=== PATIENT | female | born 1935 | race Caucasian/White ===

== ENCOUNTER 2016-08-28 19:58 | Emergency (ER) | payer OTHER ==
[~2016-08-28] VITALS: Ht 154.9 cm; Wt 63.5 kg
--- NOTE | ~2016-08-28 | EKG ---
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
[~2016-08-28 19:58] MED LIST: CIPROFLOXACIN500 M1 PO; PRINIVIL20 MG PO; PYRIDIUM100 M1 PO; TOPROL XL25 MG PO
[2016-08-28 21:02] LABS: BASOPHILS 0.6 % (0.0-2.0); EOSINOPHILS 1.7 % (0.0-3.0); HEMATOCRIT 40.7 % (37.0-47.0); HEMOGLOBIN 13.7 gm/dL (12.0-15.0); LYMPHOCYTES 27.4 % (24.0-44.0); MCH 30.4 pg (26.0-34.0); MCHC 33.7 g/dL (28.0-37.0); PLATELET COUNT 282 thou/uL (150-400); POLYS 64.3 % (36.0-66.0); RBC 4.52 mil/uL (4.20-5.00); RDW 13.2 % (10.5-14.5); WBC 7.8 thou/uL (4.0-11.0)
[2016-08-28 21:04] LABS: MANUAL DIFF NO
[2016-08-28] MEDS ORDERED: XALATAN2.5 ML OPHTHALMIC (21:04)
[2016-08-28] MEDS ORDERED: METOPROLOL TART25 MG PO (21:04)
[2016-08-28] MEDS ORDERED: TIMOLOL MA0.5 %/5 M2 INTRAOCULR (21:04)
[2016-08-28] MEDS ORDERED: LISINOPRIL40 MG PO (21:04)
[2016-08-28] MEDS ORDERED: DORZOLAMIDE HCL10 ML OP (21:04)
[2016-08-28] MEDS ORDERED: XANAX 0.25 MG0.25 MG PO (21:05)
[2016-08-28 21:12] LABS: ANION GAP 9 mmol/L (7-16); BUN 21 mg/dL (7-18); CALCIUM 9.3 mg/dL (8.5-10.1); CHLORIDE 101 mmol/L (98-107); CO2 27 mmol/L (21-32); CREATININE 1.2 mg/dL (0.6-1.0); GLUCOSE 133 mg/dL (74-106); POTASSIUM 4.1 mmol/L (3.5-5.1); SODIUM 137 mmol/L (136-145)
[2016-08-28 21:19] LABS: TROPONIN-I < 0.04 ng/mL (<0.04-0.07)
[2016-08-28 22:10] VITALS: BP 153/58
== END 2016-08-28 22:11 | disposition home or self-care (01) ==
LOC: ER 19:58
PROVIDERS: Emergency Medicine
DX: R03.0 Elevated blood-pressure reading, without diagnosis of hypertension (principal); F10.99 Alcohol use, unspecified with unspecified alcohol-induced disorder; Z88.0 Allergy status to penicillin

== ENCOUNTER 2018-03-04 05:35 | Day surgery (SDC) | payer OTHER ==
[~2018-03-04] VITALS: Ht 154.9 cm; Wt 61.2 kg
--- NOTE | ~2018-03-04 | PATH ---
[facility] [address] [place] [address] PATHOLOGY RPT PROCEDURE Name: ANGELICA BERKOWITZ Room #: DEP [facility] [place].R.#: [id number] Admission: 03/04/18 Date of : 31 Discharge: 03/04/18 Report #: [id number] Path Case #: [id number] [facility] Accession Number: [id number] . 01 Material submitted: . CANALICULITIS OF LEFT EYE . 01 Clinical history: . Left inferior canaliculitis . 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 (IUV:insurance rater; 03/05/2018) MBR/03/05/2018 . 02 Electronically signed: . Susannah Etienne MD, Pathologist NPI- [id number] . 01 Gross description: . The specimen is received in formalin, labeled "Berkowitz, Angelica, canaliculoliths of left eye" and consists of multiple fragments of soft amorphous yellow-cai tissue measuring 0.8 x 0.3 x 0.2 cm in aggregate which are entirely submitted in A1. (SDY; 03/04/2018) SYU/SYU . 02 Pathologist provided ICD-10: A42.89 . 02 CPT . 798562 Specimen Comment: A courtesy copy of this report has been sent to Specimen Comment: [phone], . Specimen Comment: Report sent to / DR MILTON Specimen Comment: A duplicate report has been generated due to demographic updates. Performed at: [address], [place] [id number] MD Jt Alvarado MD Phone: [phone] Performed at: [address] [id number] MD Susannah Etienne MD Phone: [phone]
--- NOTE | ~2018-03-04 | O ---
[facility] [place] [address] OPERATIVE REPORT Name: ROBERT BERKOWITZ Room #: DEP [facility] M.R.#: [id number] Admission: 03/04/18 Attend Phys: Jorge Luis Grace MD Discharge: 03/04/18 Date of : 31 Report #: [id number] THIS REPORT FOR: //name// CC: Vernon Grace DATE OF SERVICE: 03/04/2018 PREOPERATIVE DIAGNOSIS: Left canaliculitis with nasolacrimal duct obstruction. POSTOPERATIVE DIAGNOSIS: Left canaliculitis with nasolacrimal duct obstruction. PROCEDURE: Removal of canaliculoliths of the left inferior lacrimal outflow tract with endoscopic balloon dacryocystoplasty and silicone lacrimal intubation. SURGEON: Jorge Luis Grace M.D. BASS MECHANISM MAKER: None. ANESTHESIA: General. COMPLICATIONS: None. INDICATIONS FOR SURGERY: This pleasant 82-year-old woman has a left inferior canaliculitis with canaliculus and nasolacrimal duct obstruction. She presents today for lacrimal outflow intervention in order to attempt to establish patent lacrimal outflow and reverse her infection. Informed consent was obtained to include but not limited to the potential risk for loss of vision, bleeding, infection, failure to improve the problem and the potential need for further surgery or treatment. DESCRIPTION OF PROCEDURE: The patient was taken to the operating room where general anesthesia was administered. The left medial canthal area and the left lateral wall of the nose were then generously infiltrated with Xylocaine with epinephrine mixed with Marcaine and Wydase. The patient was subsequently prepped and draped in the usual sterile fashion. The left lower lid was then everted and the punctum dilated. Utilizing two cotton-tipped applicators, the concretions in the left patulous horizontal canaliculus were then passed in a retrograde fashion back out into the palpebral aperture. Some of the debris was collected and passed off for pathologic analysis. Multiple sections of material were removed. The tract was then irrigated through the superior system, which flushed back to the inferior system since the nasolacrimal duct was occluded, with no more debris being noted. [facility] [address] [place] [address] OPERATIVE REPORT Name: SHOROBERT Room #: DEP [facility] M.R.#: [id number] Admission: 03/04/18 Attend Phys: Jorge Luis Grace MD Discharge: 03/04/18 Date of : 31 Report #: [id number] superior punctum was similarly dilated. A #1 and then a #2 Howard probe were then passed through the superior and inferior canaliculi and passed into the nasolacrimal duct and then into the inferior meatus as confirmed video endoscopically. The inferior turbinate was medialized to allow better visualization into the inferior meatus and to ensure that both the superior and inferior canaliculus were cannulated successfully. A 3 mm x 15 mm lacricatheter was then lubricated with erythromycin ointment and then passed through the canaliculus into the nasolacrimal duct where it was confirmed to be in the proper location video endoscopically. The balloon was then inflated to 9 atmospheres for 90 seconds at the distal black marking ring. It was then passed to the proximal black marking ring where it was similarly inflated for 90 more seconds. It was then inflated completely through the system and another inflation cycle completed. The balloon was then vigorously aspirated as it was withdrawn. The tract irrigated well through both the superior and the inferior canaliculi. Miller tubes were then passed through the superior and inferior canaliculus and retrieved under the inferior turbinate with a Miller hook. The video endoscope was used to ensure that the passage was accomplished atraumatically. The silicone tubes were then secured to themselves with 3 square throws and subsequently to the lateral wall of the nose with one 5-0 Prolene suture. The wounds were then cleaned and Maxitrol drops placed on the eye. The patient was subsequently transported to the recovery area having tolerated the procedure well with no anesthetic or operative complications being noted. <ELECTRONICALLY SIGNED> By: Jorge Luis Grace MD 03/08/18 0617 0951 1051 Jorge Luis Grace MD /nt
[~2018-03-04 05:35] MED LIST changes: +ARTIFICIAL TEA3.5 G2 OPHTHALMIC; +ASPIR 8181 MG PO; +CALCIUM 500 +1 EAC5 PO; +DORZOLAMIDE HCL10 ML OPHTHALMIC; +LISINOPRIL40 MG PO; +METOPROLOL TART25 MG PO; +MULTIVITAMINS1 EAC7 PO; +NORVASC5 M1 PO; +TIMOLOL MA0.25 %/52 OPHTHALMIC; +VITAMIN B-12500 MCG PO; +VITAMIN B-6100 MG PO; +VITAMIN D31000 UNIT PO; +XALATAN2.5 ML OPHTHALMIC; +XANAX 0.25 MG0.25 MG PO
[2018-03-04 08:00] VITALS: BP 149/62
== END 2018-03-04 10:45 | disposition home or self-care (01) ==
LOC: OR 05:35 → TBA 05:36 → OR 10:31
DX: A42.89 Other forms of actinomycosis (principal); H04.542 Stenosis of left lacrimal canaliculi; I10 Essential (primary) hypertension; H40.9 Unspecified glaucoma; Z98.41 Cataract extraction status, right eye; Z98.42 Cataract extraction status, left eye; Z98.890 Other specified postprocedural states; Z79.899 Other long term (current) drug therapy; Z86.59 Personal history of other mental and behavioral disorders; Z87.440 Personal history of urinary (tract) infections; Z79.82 Long term (current) use of aspirin; Z96.1 Presence of intraocular lens
CPT/HCPCS: 50010; 50101; 50386; 50398; 51777; 55343; 56528; 62110; 62900; 70005

== ENCOUNTER 2018-12-23 13:00 | Inpatient (IN) | payer OTHER ==
[~2018-12-23] VITALS: Ht 152.4 cm; Wt 58.1 kg
[2018-12-23 15:02] VITALS: BP 168/63
[2018-12-23 15:45] LABS: ABSOLUTE NEUTROPHILS 6.7 thou/uL (1.4-8.2); BASOPHILS 0.4 % (0.0-2.0); EOSINOPHILS 0.1 % (0.0-3.0); HEMATOCRIT 41.8 % (37.0-47.0); HEMOGLOBIN 13.7 gm/dL (12.0-15.0); LYMPHOCYTES 14.1 % (24.0-44.0); MCH 29.7 pg (26.0-34.0); MCHC 32.7 g/dL (28.0-37.0); MCV 90.7 fL (80.0-100.0); MONOCYTES 1.3 % (1.0-8.0); PLATELET COUNT 276 thou/uL (150-400); POLYS 84.1 % (36.0-66.0); RBC 4.61 mil/uL (4.20-5.00); RDW 13.4 % (10.5-14.5); WBC 7.9 thou/uL (4.0-11.0)
[2018-12-23 15:52] LABS: CALCIUM 9.3 mg/dL (8.5-10.1); POTASSIUM 3.8 mmol/L (3.5-5.1)
--- NOTE | 2018-12-23 15:58 | NUR ---
PATIENT DIRECT ADMISSION FOR VERTIGO AND DEHYDRATION. REPORTS NAUSEA AND VOMITTING THIS MORNING, HEADACHE 3/10 PAIN, WILL NOTIFIY DR MILTON FOR PAIN MEDICATION. A/OX4, STAND BY ASSIST. FALL PRECATIONS IN PLACE. CONTINENT OF BLADDER BOWEL. LAST BM TODAY. ABLE TO MAKE NEEDS KNOWN, CALL LIGHT IN REACH. FLUIDS STARTED PER ORDER. PATIENT RESTING. CONTINUE TO MONITOR.
[2018-12-23 19:35] VITALS: BP 182/79
--- NOTE | 2018-12-24 04:13 | NUR ---
assumed care of pt @1915. pt a&ox4. pt ambulates to the bathroom with standby assist and a steady gait. pt declined tylenol for mild headache; stated she doesnt have a headache anymore. pt had a restful night. fall prec in place. call betancourt within reach. no s/s of distress. will cont to monitor
[2018-12-24 08:12] VITALS: BP 137/59
--- NOTE | 2018-12-24 12:19 | NUR ---
Received awake on bed. Due medications given as prescribed. A+O. On room air. Falls risk- falls bundle in place, able to ambulate with standby assist. On clear liquids- tolerating well; no nausea, no vomiting and no abdominal pain noted. With D51/2NS at 100cc/hr, infusing well at L FA. Vital signs stabl. Called Dr Benz, asked if pt can have PRN medication for dizziness and if ok to advance diet to regular since no episode of nausea and vomiting noted from last night- as per Dr Benz, he'll see patient today.
--- NOTE | 2018-12-24 14:19 | NUR ---
PT ADMITTED RELATED TO VERTIGO, DEHYDREATION. CM REVIEWED CHART AND SPOKE WITH CARE TEAM. CM MET WITH PT AT BEDSIDE THIS DAY. PT IS A&O X4. CM ROLE INTRODUCED. PT INDICATED SHE LIVES IN AN INDEPENDENT LIVING APARTMENT AT [facility]. PT INDICATED SHE HAD BEEN INDEPENDENT WITH GAIT AND ADLS [employer]. PT INDICATED NO HH HX. PT INDICATED SHE PLANS TO RETURN HOME ONCE MEDICALLY STABLE WITH NO NEEDS. DR. YOUNG INDICATED THAT LONG PT IS ABLE TO GET UP AND GET AROUND SAFTELY HE ANTICIPATES PT RETURNING HOME THIS AFTERNOON. PT INDICATED SHE WOULD ARRANGE TRASNPORT HOME. NO OTHER CM INTERVENTION ANTICPATED.
[2018-12-24 14:30] VITALS: BP 146/60
[2018-12-24 16:04] VITALS: BP 146/60
--- NOTE | 2018-12-28 14:38 | H ---
[facility] [place] [address] HISTORY AND PHYSICAL Name: ROBERT BERKOWITZ Room #: 453-P [facility] M.R.#: [id number] Admission: 12/23/18 Attend Phys: Felice Reese Discharge: 12/24/18 Date of : 31 Report #: [id number] THIS REPORT FOR: //name// CC: Vernon Holt DATE OF SERVICE: 12/23/2018 CHIEF COMPLAINT: Dizziness. HISTORY OF PRESENT ILLNESS: The patient was admitted through the office with dizziness. Symptoms began suddenly and she described a spinning sensation in her head, especially when sitting up from bed or twisting her head from side to side. She was admitted for treatment of the vertigo. Overnight with nausea medicine and IV fluid support, she is much improved. PAST MEDICAL HISTORY: Hypertension. PAST SURGICAL HISTORY: Unknown. FAMILY HISTORY: Noncontributory. SOCIAL HISTORY: She lives independently in her own apartment. No chronic alcohol or tobacco use. ALLERGIES: AMOXICILLIN. MEDICATIONS: Multiple eyedrops for glaucoma, otherwise metoprolol 25 mg b.i.d., lisinopril 40 mg, aspirin 81 mg, calcium, Tylenol, lisinopril 40 mg, B12, B6, vitamin D3 and multivitamin. REVIEW OF SYSTEMS: Denies headache, shortness of breath, chest pain, abdominal pain, dysuria, myalgias, arthralgias, syncope or fall. OBJECTIVE: VITAL SIGNS: Temperature 36.5, pulse 70, respirations 18, blood pressure 137/59, O2 sat 100% on room air. GENERAL: She is awake and alert, in no distress. HEAD AND NECK: Unremarkable. No nystagmus. LUNGS: Clear. HEART: Regular. ABDOMEN: Soft, normoactive bowel sounds. EXTREMITIES: No edema. NEUROLOGIC: Cranial nerves intact. Global strength intact. No lateralizing signs. LABORATORY DATA: Unremarkable. [facility] [address] [place] [address] HISTORY AND PHYSICAL Name: ROBERT BERKOWITZ Room #: 453-P DIS IN [facility].#: [id number] Admission: 12/23/18 Attend Phys: Felice Reese Discharge: 12/24/18 Date of : 31 Report #: [id number] ASSESSMENT: 1. Acute benign vertigo. 2. Hypertension. PLAN: Resume her home medicine and hold off on the amlodipine as her blood pressure is a little bit on the lower end for her today. I will ask the staff to get her up and walk the halls and if she is improved and can tolerate a regular diet, she could go home later this afternoon. <ELECTRONICALLY SIGNED> By: Tyrone Benz MD 12/28/18 1438 1227 1244 Tyrone Benz MD /nt
== END 2018-12-24 16:52 | disposition home or self-care (01) | DRG 149 ==
LOC: 4W 13:00
PROVIDERS: ADMIT Internal Medicine
DX: H81.10 Benign paroxysmal vertigo, unspecified ear (principal); I10 Essential (primary) hypertension; Z88.1 Allergy status to other antibiotic agents; Z79.899 Other long term (current) drug therapy
CPT/HCPCS: 10047

== ENCOUNTER 2019-11-12 10:39 | Emergency (ER) | payer OTHER ==
[~2019-11-12] VITALS: Ht 152.4 cm; Wt 57.6 kg
[2019-11-12 11:21] LABS: URINE BILIRUBIN NEGATIVE (Negative); URINE BLOOD NEGATIVE (Negative); URINE CLARITY CLEAR; URINE COLOR YELLOW; URINE GLUCOSE-RANDOM* NEGATIVE (Negative); URINE KETONES NEGATIVE (Negative); URINE LEUKOCYTES-REFLEX NEGATIVE (Negative); URINE NITRITE-REFLEX NEGATIVE (Negative); URINE PROTEIN (DIPSTICK) 1+ (Negative); URINE UROBILINOGEN 0.2 E.U./dl (0.2-1.0)
[2019-11-12 11:34] LABS: ABSOLUTE NEUTROPHILS 5.7 thou/uL (1.4-8.2); BASOPHILS 0.6 % (0.0-2.0); EOSINOPHILS 0.9 % (0.0-3.0); HEMATOCRIT 40.4 % (37.0-47.0); HEMOGLOBIN 13.7 gm/dL (12.0-15.0); LYMPHOCYTES 16.6 % (24.0-44.0); MCH 30.8 pg (26.0-34.0); MCHC 33.9 g/dL (28.0-37.0); MCV 90.8 fL (80.0-100.0); MONOCYTES 2.9 % (1.0-8.0); PLATELET COUNT 285 thou/uL (150-400); RBC 4.45 mil/uL (4.20-5.00); RDW 13.6 % (10.5-14.5); WBC 7.2 thou/uL (4.0-11.0)
[2019-11-12 11:36] LABS: CREATININE 1.2 mg/dL (0.6-1.0)
[2019-11-12 13:19] LABS: CASTS None Seen /LPF (None Seen); SQUAMOUS None Seen /LPF (0-3)
[2019-11-12 13:20] LABS: BACTERIA-REFLEX None Seen /HPF (None Seen); CRYSTALS None Seen /LPF (None Seen); URINE RBC None Seen /HPF (0-2); URINE WBC-REFLEX 0-5 Rare /HPF (0-5)
[2019-11-12 13:39] VITALS: BP 165/79
--- NOTE | 2019-11-14 08:37 | EKG ---
[facility] [place] [address] ELECTROCARDIOGRAM REPORT Name: ROBERT EBRKOWITZ Room #: DEP [facility]..#: [id number] Admission: 11/12/19 Attend Phys: Discharge: 11/12/19 Date of : 31 Report #: [id number] THIS REPORT FOR: cc: Vernon Holt MD, Christopher B. 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
== END 2019-11-12 13:39 | disposition home or self-care (01) ==
LOC: ER 10:39
PROVIDERS: Emergency Medicine
DX: R42 Dizziness and giddiness (principal); I10 Essential (primary) hypertension; Z79.82 Long term (current) use of aspirin; Z79.899 Other long term (current) drug therapy; Z88.1 Allergy status to other antibiotic agents